=== PATIENT | female | born 1990 | race African-American/Black ===

== ENCOUNTER 2019-10-16 04:55 | Emergency (ER) | payer MEDICAID ==
[~2019-10-16] VITALS: Ht 170.2 cm; Wt 113.4 kg
[2019-10-16 07:32] VITALS: BP 131/82
== END 2019-10-16 07:32 | disposition home or self-care (01) ==
LOC: ER 04:55
DX: R00.2 Palpitations (principal)
CPT/HCPCS: 93005; 99283